=== PATIENT | male | born 1950 | race Caucasian/White ===

== ENCOUNTER 2019-07-06 07:35 | Outpatient (CLI) | payer MEDICARE, SELFPAY ==
--- NOTE | 2019-07-06 07:54 | CT_ITS ---
WS: [id number] CT ABDOMEN PELVIS TECHNIQUE: Contrast-enhanced CT of the abdomen and pelvis with coronal and sagittal reformatted image s. CLINICAL INFORMATION: ABDOMINAL PAIN, RLQ COMPARISON: None. DLP: 1650.[address] scans at [facility] use at least one of these dose optimization techniques: automat ed exposure control; mA and/or kV adjustment per patient size (includes targeted exams where dose is matched to clinical indication); or iterative reconstruction. FINDINGS: Liver is normal in appearance. Normal spleen. Hepatic cyst in the dome of the liver measuring 2.4 x 1 .5 CM. Normal portal vein and splenic vein. Lung bases are well aerated. Subsegmental atelectasis lef t lower lobe. Normal pancreas. Normal GE junction. Slightly enlarged heterogeneous nodular prostate. Prostate measures 4.2 x 3.4 x 3.4 CCM. Recommend co rrelation PSA. Mild diffuse thickening involving the sigmoid colon with slight induration and inflammatory stranding consistent with uncomplicated acute diverticulitis. No evidence of drainable abscess or fluid collec tion. Fatty attenuation lesion involving the cecum measuring 2.1 x 1.5 cm suspicious for cecal lipoma. This could be further evaluated with colonoscopy. No free fluid in the pelvis. Normal bilateral renal parenchymal enhancement. No hydronephrosis. Small bilateral renal cysts. Some of these are too small to characterize. Complex left cortical cyst left upper pole anteriorly. Measuring 1.4 cm with some peripheral enhancement. This can be further evaluat ed with ultrasound. No periaortic or pelvic lymphadenopathy. CT/CT abdomen pelvis w con* [id number] IMPRESSION: 1. Mild diffuse thickening with slight induration involving the sigmoid colon consistent with acute diverticulitis. No drainable fluid collections. 2. Fatty attenuation lesion involving the cecum measuring 2.0 x 1.5 cm suspici ous for cecal lipoma. This can be further evaluated with colonoscopy. 3. Heterogeneous nodular enhancing prostate. Recommend correlation PSA. 4. Multiple small bilateral renal cysts. Slightly complex cyst peripheral enha ncement upper pole left kidney anteriorly measuring 1.4 CM. This can be followe d up with ultrasound. 5. Hepatic cyst dome of the liver measuring 1.5 x 2.4 cm.
[2019-07-06 08:32] LABS: Blood Urea Nitrogen 14 mg/dL (8-23); Glomerular Filtration Rate 112.1 mL/min (90-130)
[2019-07-06] MEDS: iohexol 300 mg/mL 100 mL Btl IV (09:19)
== END 2019-07-06 07:36 | disposition home or self-care (01) ==
LOC: RAD 07:46
PROVIDERS: Family Provider Family Medicine; PCP Family Medicine; Visit Provider Nurse Practitioner Family
DX: R10.31 Right lower quadrant pain (principal); K76.89 Other specified diseases of liver; Q61.02 Congenital multiple renal cysts; N40.2 Nodular prostate without lower urinary tract symptoms
CPT/HCPCS: 36415; 74177; 82565; 84520

== ENCOUNTER 2019-10-22 07:33 | Outpatient (CLI) | payer MEDICARE, SELFPAY ==
--- NOTE | 2019-10-22 07:41 | US_ITS ---
WS: [id number] Complete ABDOMINAL ULTRASOUND HISTORY: LIVER CYST/RENAL CYST/RLQ ABD PAIN/DIVERTICULOSIS COMPARISON: 07/06/2019 CT. Liver: 20.0 cm in length. Moderately enlarged liver. Cyst at the hepatic dome measures 1.6 x 1.6 x 1. 6 cm. No increased vascularity. No additional lesions in the liver. Surface of the liver is slightly undulating. No bile duct dilatation. Gallbladder: Normally distended with no gallstones, wall thickening or pericholecystic fluid. Gallbladder wall thickness: 0.2 cm. Pancreas: Normal size and echogenicity. CBD: 0.6 cm. Right kidney: 11.4 cm x 6.5 cm x 7.0 cm. No mass, cortical thickening or hydronephrosis. Left kidney: 10.8 cm x 6.0 cm x 6.8 cm. Normal size kidney. Exophytic cyst from the mid kidney measu res 1.4 x 1.9 x 1.9 cm. There are smaller cysts. No solid mass. Spleen: Moderately enlarged spleen measures 18 cm in length. No lesions within the spleen. Abdominal aorta and IVC are within normal limits. No ascites. US/US abdomen complete* [id number] IMPRESSION: 1. Normal gallbladder. 2. LEFT renal and hepatic cysts. 3. Moderate hepatomegaly and hepatic steatosis. Early changes of cirrhosis mady uld be considered. 4. Splenomegaly.
--- NOTE | 2019-10-22 07:41 | US_ITS ---
WS: [id number] Pelvic ultrasound. HISTORY: Pelvic pain. Evaluate for solid or fluid collections. Urinary bladder is moderately distended. No free fluid. No pelvic masses. US/US pelvic complete* [id number] IMPRESSION: Moderate distention of the urinary bladder. Otherwise negative.
== END 2019-10-22 07:34 | disposition home or self-care (01) ==
LOC: RAD 07:34
PROVIDERS: PCP Family Medicine; Visit Provider Family Medicine
DX: K76.89 Other specified diseases of liver (principal); N28.1 Cyst of kidney, acquired; K57.30 Diverticulosis of large intestine without perforation or abscess without bleeding; R10.31 Right lower quadrant pain; R16.2 Hepatomegaly with splenomegaly, not elsewhere classified; K76.0 Fatty (change of) liver, not elsewhere classified; R10.2 Pelvic and perineal pain
CPT/HCPCS: 76700; 76856

== ENCOUNTER → 2020-01-31 10:03 | Outpatient (BNVA) | payer MEDICARE, SELFPAY | PROVIDERS: PCP Family Medicine; Visit Provider Internal Medicine Rheumatology | DX: M25.50 Pain in unspecified joint (principal); Z79.899 Other long term (current) drug therapy; Z11.59 Encounter for screening for other viral diseases; Z11.1 Encounter for screening for respiratory tuberculosis; R16.1 Splenomegaly, not elsewhere classified; R16.0 Hepatomegaly, not elsewhere classified | CPT/HCPCS: 36415; 99204 ==

== ENCOUNTER 2020-01-31 10:56 | Outpatient (CLI) | payer MEDICARE, SELFPAY ==
--- NOTE | 2020-01-31 11:04 | XR_ITS ---
WS: [id number] LEFT FOOT: 3 VIEW(S) TECHNIQUE: AP, oblique and lateral. HISTORY: inflammatory arthritis COMPARISON: None available. No acute fracture or dislocation. Mild hallux valgus. No erosions. No subluxation. Small calcaneal spur. XR/XR foot LT min 3V* [id number] IMPRESSION: No erosions. Mild hallux valgus deformity.
--- NOTE | 2020-01-31 11:04 | XR_ITS ---
WS: [id number] CERVICAL SPINE 3 VIEWS HISTORY: inflammatory arthritis COMPARISON: None available. C3 anterolisthesis by 2.7 mm. Moderate disc space narrowing at C4-5, C5-6 and C6-7. Facet joint arthr itis is mild throughout the cervical spine. Mild LEFT convex curvature. No fractures. The odontoid pr ocess is normal. Soft tissues are normal. XR/XR cervical spine 3V* [id number] IMPRESSION: Mild to moderate spondylitic changes. Mild LEFT convex scoliosis.
--- NOTE | 2020-01-31 11:04 | XR_ITS ---
WS: [id number] RIGHT HAND: 3 VIEW(S) TECHNIQUE: PA, oblique and lateral. HISTORY: inflammatory arthritis COMPARISON: None available. No acute fracture or dislocation. Mild interphalangeal joint space narrowing. No erosions. No osteopenia or soft tissue edema. XR/XR hand RT min 3V* [id number] IMPRESSION: Mild osteoarthritis. No erosions.
--- NOTE | 2020-01-31 11:04 | XR_ITS ---
WS: [id number] RIGHT FOOT: 3 VIEW(S) TECHNIQUE: AP, oblique and lateral. HISTORY: inflammatory arthritis COMPARISON: None available. No acute fracture or dislocation. Normal tarsal/metatarsal alignment. Mild hallux valgus deformity. No erosions. Joint spaces are preserved. Very small calcaneal spur. There is diffuse soft tissue edema around the foot. XR/XR foot RT min 3V* [id number] IMPRESSION: Diffuse soft tissue edema around the foot. No erosions. Mild hallux valgus.
--- NOTE | 2020-01-31 11:04 | XR_ITS ---
WS: [id number] LEFT HAND: 3 VIEW(S) TECHNIQUE: PA, oblique and lateral. HISTORY: inflammatory arthritis COMPARISON: None available. No acute fracture or dislocation. Mild interphalangeal joint space. No erosions or periostitis. No subluxation. Mild degenerative mazariegos es at the first metatarsophalangeal joint. No definite erosions. XR/XR hand LT min 3V* [id number] IMPRESSION: Mild changes of osteoarthritis.
--- NOTE | 2020-01-31 11:04 | XR_ITS ---
WS: [id number] CHEST 2 VIEWS HISTORY: inflammatory arthritis COMPARISON: 03/31/2008 Lungs: Slight elevation of the LEFT hemidiaphragm. Minimal pleural thickening at the LEFT lung base. No pneumonia. No nodules. Cardiac size: Normal. Mediastinum/Aorta: Normal mediastinum. Bones: Prior plate and screw fixation LEFT clavicle. XR/XR chest 2V* [id number] IMPRESSION: No acute cardiopulmonary disease. No pulmonary nodules.
== END 2020-01-31 10:57 | disposition home or self-care (01) ==
PROVIDERS: PCP Family Medicine; Visit Provider Internal Medicine Rheumatology
DX: Z79.899 Other long term (current) drug therapy; M20.12 Hallux valgus (acquired), left foot; R60.0 Localized edema; M20.11 Hallux valgus (acquired), right foot; M19.042 Primary osteoarthritis, left hand; M19.041 Primary osteoarthritis, right hand; Z11.59 Encounter for screening for other viral diseases
CPT/HCPCS: 71046; 72040; 73130; 73630; 80076; 82306; 82565; 85025; 85651; 86140; 86431; 86480; 86704; 86803; 87340

== ENCOUNTER → 2020-03-15 08:23 | Outpatient (BNVA) | payer MEDICARE, SELFPAY | PROVIDERS: PCP Family Medicine; Visit Provider Internal Medicine Rheumatology | DX: M19.90 Unspecified osteoarthritis, unspecified site (principal); Z79.899 Other long term (current) drug therapy; M77.9 Enthesopathy, unspecified; Z22.7 Latent tuberculosis; Z87.891 Personal history of nicotine dependence | CPT/HCPCS: 99214 ==

== ENCOUNTER → 2021-12-04 07:43 | Outpatient (BNVA) | payer MEDICARE, SELFPAY | PROVIDERS: PCP Family Medicine; Visit Provider Family Medicine | DX: I10 Essential (primary) hypertension (principal); R60.9 Edema, unspecified; R06.00 Dyspnea, unspecified; Z22.7 Latent tuberculosis; R16.0 Hepatomegaly, not elsewhere classified; R16.1 Splenomegaly, not elsewhere classified | CPT/HCPCS: 80053; 83880; 85025 ==

== ENCOUNTER 2022-02-08 06:37 | Outpatient (CLI) | payer MEDICARE, SELFPAY ==
--- NOTE | 2022-02-08 08:00 | USCV_ITS ---
Néstor Denton Age: 71 Gender: M : 1950 Exam Date: 02/08/2022 08:13 Ordering Phys: Beka Parks DO Technologist: Annabelle Ford [place]am Location[place] [facility] [place]: sob, edema BP: 133 / 80 HR: 72 Rhythm: Sinus Technical Quality: Fair MEASUREMENTS (Male / Female) Normal Values 2D ECHO LV Diastolic Diameter PLAX 5.9 cm 4.2 - 5.9 / 3.9 - 5.3 cm LV Systolic Diameter PLAX 2.6 cm IVS Diastolic Thickness 1.2 cm 0.6 - 1.0 / 0.6 - 0.9 cm IVS Systolic Thickness 1.7 cm LVPW Diastolic Thickness 1.4 cm 0.6 - 1.0 / 0.6 - 0.9 cm LVPW Systolic Thickness 3.2 cm LV Ejection Fraction 2D Teich 85.0 % LV Ejection Fraction MOD 2C 57.0 % LV Ejection Fraction 2C AL 57.5 % LA Diameter 2.4 cm LA Width 3.8 cm LA Height 0.0 cm RA Width 3.9 cm RA Height 4.4 cm Aorta at Sinotubular Diameter 3.0 cm IVC Diameter 2.3 cm DOPPLER AV Peak Velocity 146.0 cm/s LVOT Peak Velocity 84.0 cm/s MV Peak Velocity 133.0 cm/s MV Area PHT 2.9 cm squared Mitral E to A Ratio 0.7 MV E' Velocity 38.0 cm/s Mitral E to MV E' Ratio 9.5 Mitral E to LV E' Lateral Ratio 12.0 Mitral E to LV E' Septal Ratio 7.9 TR Peak Velocity 160.3 cm/s TR Peak Gradient 10.3 mmHg Right Atrial Pressure 3.0 mmHg Pulmonary Artery Systolic Pressu 13.3 mmHg PV Peak Velocity 98.0 cm/s RV Acceleration Time 0.1 s RV Ejection Time 0.2 s RV AcT/ET 0.4 FINDINGS Left Ventricle Normal left ventricular size and systolic function, EF 66 %. No regional wall motion abnormalities. Mild left ventricular hypertrophy. Grade I/IV diastolic dysfunction (abnormal relaxation filling pattern), normal to mildly elevated filling pressures. Right Ventricle The right ventricle is normal in size and function. Right Atrium The right atrium is normal in size. Left Atrium The left atrium is normal in size. Mitral Valve Mild mitral valve regurgitation. Aortic Valve No gross abnormalities noted Tricuspid Valve Trace tricuspid valve regurgitation. Pulmonic Valve Pulmonic valve not well visualized. Pericardium Normal pericardium without effusion. Aorta Normal aortic annulus size. IVC Normal inferior vena cava. CONCLUSIONS Normal left ventricular size and systolic function, EF 66 %. No regional wall motion abnormalities. Mild left ventricular hypertrophy. Grade I/IV diastolic dysfunction (abnormal relaxation filling pattern), normal to mildly elevated filling pressures. Mild mitral valve regurgitation. Trace tricuspid valve regurgitation. Estimated pulmonary artery peak systolic pressure within normal limits There is no pericardial effusion. No similar previous studies are available for comparison Dr Lissette Nunez MD FAC (Electronically Signed) Final Date: 08 February 2022 20:44 S
== END 2022-02-08 06:38 | disposition home or self-care (01) ==
PROVIDERS: PCP Family Medicine; Visit Provider Family Medicine
DX: R06.00 Dyspnea, unspecified (principal); R60.9 Edema, unspecified; I10 Essential (primary) hypertension; I08.1 Rheumatic disorders of both mitral and tricuspid valves
CPT/HCPCS: 93306

== ENCOUNTER → 2022-11-15 09:08 | Outpatient (BNVA) | payer MEDICARE, SELFPAY | PROVIDERS: PCP Family Medicine; Visit Provider Family Medicine | DX: I10 Essential (primary) hypertension (principal); R16.0 Hepatomegaly, not elsewhere classified; R16.1 Splenomegaly, not elsewhere classified; R60.9 Edema, unspecified; Z13.6 Encounter for screening for cardiovascular disorders; Z79.899 Other long term (current) drug therapy | CPT/HCPCS: 80053; 80061; 83036; 85025 ==

== ENCOUNTER → 2023-05-05 10:58 | Outpatient (BNVA) | payer MEDICARE, SELFPAY | PROVIDERS: PCP Family Medicine; Visit Provider Family Medicine | DX: E11.9 Type 2 diabetes mellitus without complications (principal); I10 Essential (primary) hypertension; R16.0 Hepatomegaly, not elsewhere classified; R16.1 Splenomegaly, not elsewhere classified; M19.90 Unspecified osteoarthritis, unspecified site; R73.03 Prediabetes; Z13.6 Encounter for screening for cardiovascular disorders | CPT/HCPCS: 80053; 80061; 83036; 85025 ==

== ENCOUNTER → 2023-05-26 12:21 | Outpatient (BNVA) | payer MEDICARE, SELFPAY | PROVIDERS: PCP Family Medicine; Visit Provider Family Medicine | DX: R16.1 Splenomegaly, not elsewhere classified (principal); D75.1 Secondary polycythemia | CPT/HCPCS: 82668; 82728; 83540 ==

== ENCOUNTER → 2023-10-24 10:25 | Outpatient (BNVA) | payer MEDICARE, SELFPAY | PROVIDERS: PCP Family Medicine; Visit Provider Family Medicine | DX: I10 Essential (primary) hypertension (principal); R73.03 Prediabetes; D75.1 Secondary polycythemia; Z13.6 Encounter for screening for cardiovascular disorders | CPT/HCPCS: 80053; 80061; 83036; 85025 ==

== ENCOUNTER → 2024-04-23 11:12 | Outpatient (BNVA) | payer MEDICARE, SELFPAY | PROVIDERS: PCP Family Medicine; Visit Provider Family Medicine | DX: I10 Essential (primary) hypertension (principal); R73.03 Prediabetes; D75.1 Secondary polycythemia; Z00.00 Encounter for general adult medical examination without abnormal findings | CPT/HCPCS: 80053; 80061; 83036; 85025 ==

== ENCOUNTER → 2024-05-04 14:29 | Outpatient (BNVA) | payer MEDICARE, SELFPAY | PROVIDERS: PCP Family Medicine; Visit Provider Family Medicine | DX: E61.1 Iron deficiency (principal); D75.1 Secondary polycythemia; Z22.7 Latent tuberculosis; R60.9 Edema, unspecified | CPT/HCPCS: 81270; 82728; 83540 ==

== ENCOUNTER 2024-07-20 13:00 | Oncology outpatient (recurring) (ONCR) | payer MEDICARE, SELFPAY ==
[2024-06-29 08:58] LABS: Basophils # 0.1 10^3/uL (0.0-0.1); Eosinophils # 0.3 10^3/uL (0.0-0.8); Eosinophils % 3.3 %; Hematocrit 55.8 % (37-53); Lymphocytes # 1.9 10^3/uL (0.8-4.8); Lymphocytes % 19.5 %; Mean Corpuscular HGB Conc 34.1 g/dL (30-55); Mean Corpuscular Hemoglobin 29.9 pg (27-33); Mean Corpuscular Volume 87.9 fl (82-101); Mean Platelet Volume 9.8 fL (7.4-10.4); Monocytes # 0.5 10^3/uL (0.2-0.9); Monocytes % 5.4 %; Neutrophils # 6.73 10^3/uL (1.8-7.7); Neutrophils % 70.1 %; Nucleated Red Blood Cells % 0 %; Platelet Count 342 10^3/cmm (157-399); Red Blood Count 6.35 10^6/uL (3.85-5.65); Red Cell Distribution Width 14.6 % (12.1-15.1); White Blood Count 9.62 10^3/uL (3.29-11.43)
[2024-06-29 09:13] LABS: Alanine Aminotransferase 20 U/L (0-41); Albumin Level 4.4 g/dL (3.5-5.2); Alkaline Phosphatase 72 U/L (40-130); Aspartate Amino Transferase 22 U/L (0-40); Blood Urea Nitrogen 10 mg/dL (8-23); Calcium 8.9 mg/dL (8.5-10.5); Carbon Dioxide 26 mmol/L (22-29); Chloride 105 mmol/L (98-107); Creatinine Clr Calc Pharmacy 86.3141; Globulin 2.4 g/dL (1.3-4.6); Glucose 108 mg/dL (65-115); Osmolality Calculated 292 mOsm/kg (285-295); Sodium 141 mmol/L (136-145); Total Bilirubin 0.7 mg/dL (0.15-1.2); Total Protein 6.8 g/dL (6.6-8.7)
[2024-06-29 09:18] LABS: Anion Gap 13.8 (5-19); Potassium 3.8 mmol/L (3.5-5.1)
[2024-06-29 15:57] VITALS: BP 148/92; PULSE 68; RESP 16; O2SAT 94
[2024-07-20 13:16] LABS: Basophils # 0.1 10^3/uL (0.0-0.1); Basophils % 0.6 %; Eosinophils # 0.3 10^3/uL (0.0-0.8); Eosinophils % 2.4 %; Hematocrit 49.3 % (37-53); Lymphocytes # 2.1 10^3/uL (0.8-4.8); Lymphocytes % 18.5 %; Mean Corpuscular HGB Conc 34.7 g/dL (30-55); Mean Corpuscular Hemoglobin 30.1 pg (27-33); Mean Corpuscular Volume 86.8 fl (82-101); Mean Platelet Volume 9.5 fL (7.4-10.4); Monocytes # 0.5 10^3/uL (0.2-0.9); Monocytes % 4.7 %; Neutrophils # 8.38 10^3/uL (1.8-7.7); Neutrophils % 73.3 %; Nucleated Red Blood Cells % 0 %; Platelet Count 324 10^3/cmm (157-399); Red Blood Count 5.68 10^6/uL (3.85-5.65); Red Cell Distribution Width 15.2 % (12.1-15.1); White Blood Count 11.44 10^3/uL (3.29-11.43)
[2024-07-20 13:38] LABS: Alanine Aminotransferase 23 U/L (0-41); Albumin Level 4.3 g/dL (3.5-5.2); Alkaline Phosphatase 75 U/L (40-130); Anion Gap 15.3 (5-19); Aspartate Amino Transferase 24 U/L (0-40); Blood Urea Nitrogen 9 mg/dL (8-23); Calcium 8.7 mg/dL (8.5-10.5); Carbon Dioxide 28 mmol/L (22-29); Chloride 105 mmol/L (98-107); Creatinine Clr Calc Pharmacy 85.8921; Globulin 2.4 g/dL (1.3-4.6); Glucose 105 mg/dL (65-115); Osmolality Calculated 297 mOsm/kg (285-295); Potassium 4.3 mmol/L (3.5-5.1); Sodium 144 mmol/L (136-145); Total Bilirubin 0.6 mg/dL (0.15-1.2); Total Protein 6.7 g/dL (6.6-8.7)
== END 2024-07-28 23:59 | disposition home or self-care (01) ==
PROVIDERS: PCP Family Medicine; Visit Provider Internal Medicine Medical Oncology
DX: Z53.9 Procedure and treatment not carried out, unspecified reason; D45 Polycythemia vera; Z15.89 Genetic susceptibility to other disease; Z87.891 Personal history of nicotine dependence; Z79.899 Other long term (current) drug therapy
CPT/HCPCS: 36415; 80053; 85025; 99195; 99205; 99214

== ENCOUNTER 2024-08-17 15:11 | Oncology outpatient (recurring) (ONCR) | payer MEDICARE, SELFPAY ==
[2024-08-17 14:01] LABS: Basophils # 0.1 10^3/uL (0.0-0.1); Basophils % 1.1 %; Eosinophils # 0.3 10^3/uL (0.0-0.8); Eosinophils % 3.1 %; Hematocrit 50.1 % (37-53); Lymphocytes # 2.1 10^3/uL (0.8-4.8); Lymphocytes % 25.5 %; Mean Corpuscular HGB Conc 34.3 g/dL (30-55); Mean Corpuscular Hemoglobin 31.4 pg (27-33); Mean Corpuscular Volume 91.4 fl (82-101); Mean Platelet Volume 9.5 fL (7.4-10.4); Monocytes # 0.5 10^3/uL (0.2-0.9); Monocytes % 5.5 %; Neutrophils # 5.34 10^3/uL (1.8-7.7); Neutrophils % 64.4 %; Nucleated Red Blood Cells % 0 %; Platelet Count 201 10^3/cmm (157-399); Red Blood Count 5.48 10^6/uL (3.85-5.65)
[2024-08-17 14:20] LABS: Alanine Aminotransferase 22 U/L (0-41); Albumin Level 4.1 g/dL (3.5-5.2); Alkaline Phosphatase 70 U/L (40-130); Anion Gap 11.7 (5-19); Aspartate Amino Transferase 22 U/L (0-40); Blood Urea Nitrogen 12 mg/dL (8-23); Calcium 8.7 mg/dL (8.5-10.5); Carbon Dioxide 27 mmol/L (22-29); Chloride 104 mmol/L (98-107); Creatinine Clr Calc Pharmacy 86.7362; Globulin 2.8 g/dL (1.3-4.6); Glucose 100 mg/dL (65-115); Osmolality Calculated 288 mOsm/kg (285-295); Potassium 3.7 mmol/L (3.5-5.1); Sodium 139 mmol/L (136-145); Total Bilirubin 0.6 mg/dL (0.15-1.2); Total Protein 6.9 g/dL (6.6-8.7)
== END 2024-08-28 23:59 | disposition home or self-care (01) ==
PROVIDERS: PCP Family Medicine; Visit Provider Internal Medicine Medical Oncology
DX: Z53.9 Procedure and treatment not carried out, unspecified reason; D45 Polycythemia vera; Z15.89 Genetic susceptibility to other disease; Z87.891 Personal history of nicotine dependence; Z79.899 Other long term (current) drug therapy; R03.0 Elevated blood-pressure reading, without diagnosis of hypertension; Z79.64 Long term (current) use of myelosuppressive agent
CPT/HCPCS: 36415; 80053; 85025; 99195; 99214

== ENCOUNTER 2024-09-14 12:10 | Oncology outpatient (recurring) (ONCR) | payer MEDICARE, SELFPAY ==
[2024-09-14 12:55] LABS: Red Blood Count 4.87 10^6/uL (3.85-5.65); White Blood Count 5.86 10^3/uL (3.29-11.43)
[2024-09-14 12:56] LABS: Basophils # 0.1 10^3/uL (0.0-0.1); Basophils % 0.9 %; Eosinophils # 0.2 10^3/uL (0.0-0.8); Eosinophils % 2.7 %; Lymphocytes # 1.8 10^3/uL (0.8-4.8); Lymphocytes % 29.9 %; Mean Corpuscular HGB Conc 35.7 g/dL (30-55); Mean Corpuscular Hemoglobin 34.5 pg (27-33); Mean Corpuscular Volume 96.5 fl (82-101); Mean Platelet Volume 9.3 fL (7.4-10.4); Monocytes # 0.3 10^3/uL (0.2-0.9); Monocytes % 5.1 %; Neutrophils # 3.58 10^3/uL (1.8-7.7); Neutrophils % 61.1 %; Nucleated Red Blood Cells % 0 %; Platelet Count 138 10^3/cmm (157-399); Red Cell Distribution Width 19.2 % (12.1-15.1)
[2024-09-14 13:14] LABS: Alanine Aminotransferase 20 U/L (0-41); Albumin Level 4.2 g/dL (3.5-5.2); Alkaline Phosphatase 64 U/L (40-130); Aspartate Amino Transferase 20 U/L (0-40); Blood Urea Nitrogen 12 mg/dL (8-23); Calcium 8.7 mg/dL (8.5-10.5); Carbon Dioxide 26 mmol/L (22-29); Chloride 105 mmol/L (98-107); Globulin 2.3 g/dL (1.3-4.6); Glucose 112 mg/dL (65-115); Osmolality Calculated 289 mOsm/kg (285-295); Sodium 139 mmol/L (136-145); Total Bilirubin 0.6 mg/dL (0.15-1.2); Total Protein 6.5 g/dL (6.6-8.7)
== END 2024-09-27 23:59 | disposition home or self-care (01) ==
PROVIDERS: Nurse Practitioner Family; PCP Family Medicine; Visit Provider Internal Medicine Medical Oncology
DX: Z53.9 Procedure and treatment not carried out, unspecified reason; D45 Polycythemia vera; Z87.891 Personal history of nicotine dependence; Z79.899 Other long term (current) drug therapy; R03.0 Elevated blood-pressure reading, without diagnosis of hypertension
CPT/HCPCS: 36415; 80053; 85025; 99213

== ENCOUNTER 2024-10-12 10:14 | Oncology outpatient (recurring) (ONCR) | payer MEDICARE, SELFPAY ==
[2024-10-12 10:44] LABS: Hematocrit 44.6 % (37-53); Hemoglobin 15.90 g/dL (11.27-16.99); Mean Corpuscular HGB Conc 35.7 g/dL (30-55); Mean Corpuscular Hemoglobin 35.3 pg (27-33); Mean Corpuscular Volume 98.9 fl (82-101); Nucleated Red Blood Cells % 0 %; Platelet Count 113 10^3/cmm (157-399); Red Blood Count 4.51 10^6/uL (3.85-5.65); White Blood Count 5.70 10^3/uL (3.29-11.43)
[2024-10-12 10:59] LABS: Alanine Aminotransferase 23 U/L (0-41); Albumin Level 3.9 g/dL (3.5-5.2); Alkaline Phosphatase 69 U/L (40-130); Anion Gap 13.0 (5-19); Aspartate Amino Transferase 21 U/L (0-40); Blood Urea Nitrogen 10 mg/dL (8-23); Calcium 8.5 mg/dL (8.5-10.5); Carbon Dioxide 28 mmol/L (22-29); Chloride 104 mmol/L (98-107); Globulin 2.5 g/dL (1.3-4.6); Glucose 122 mg/dL (65-115); Osmolality Calculated 292 mOsm/kg (285-295); Potassium 4.0 mmol/L (3.5-5.1); Sodium 141 mmol/L (136-145); Total Protein 6.4 g/dL (6.6-8.7)
== END 2024-10-28 23:59 | disposition home or self-care (01) ==
PROVIDERS: Nurse Practitioner Family; PCP Family Medicine; Visit Provider Internal Medicine Medical Oncology
DX: D45 Polycythemia vera (principal); R03.0 Elevated blood-pressure reading, without diagnosis of hypertension; D69.6 Thrombocytopenia, unspecified; Z87.891 Personal history of nicotine dependence; Z79.899 Other long term (current) drug therapy
CPT/HCPCS: 36415; 80053; 85025; 99213

== ENCOUNTER 2024-11-23 10:59 | Oncology outpatient (recurring) (ONCR) | payer MEDICARE, SELFPAY ==
[2024-11-23 11:27] LABS: Hematocrit 40.4 % (37-53); Hemoglobin 14.80 g/dL (11.27-16.99); Mean Corpuscular HGB Conc 36.6 g/dL (30-55); Mean Corpuscular Hemoglobin 38.0 pg (27-33); Mean Corpuscular Volume 103.9 fl (82-101); Nucleated Red Blood Cells % 0 %; Platelet Count 104 10^3/cmm (157-399); Red Blood Count 3.89 10^6/uL (3.85-5.65); White Blood Count 5.38 10^3/uL (3.29-11.43)
[2024-11-23 11:54] LABS: Alanine Aminotransferase 23 U/L (0-41); Albumin Level 4.0 g/dL (3.5-5.2); Alkaline Phosphatase 67 U/L (40-130); Anion Gap 10.8 (5-19); Aspartate Amino Transferase 25 U/L (0-40); Blood Urea Nitrogen 11 mg/dL (8-23); Calcium 8.5 mg/dL (8.5-10.5); Carbon Dioxide 27 mmol/L (22-29); Chloride 104 mmol/L (98-107); Globulin 2.5 g/dL (1.3-4.6); Glucose 120 mg/dL (65-115); Osmolality Calculated 287 mOsm/kg (285-295); Potassium 3.8 mmol/L (3.5-5.1); Sodium 138 mmol/L (136-145); Total Protein 6.5 g/dL (6.6-8.7)
== END 2024-11-28 23:59 | disposition home or self-care (01) ==
PROVIDERS: PCP Family Medicine; Visit Provider Internal Medicine Medical Oncology
DX: D45 Polycythemia vera (principal); R03.0 Elevated blood-pressure reading, without diagnosis of hypertension; D69.6 Thrombocytopenia, unspecified; Z87.891 Personal history of nicotine dependence; Z79.899 Other long term (current) drug therapy
CPT/HCPCS: 36415; 80053; 85025; 99213

== ENCOUNTER 2025-01-25 11:49 | Oncology outpatient (recurring) (ONCR) | payer MEDICARE, SELFPAY ==
[2025-01-25 12:18] LABS: Hematocrit 39.2 % (37-53); Hemoglobin 14.50 g/dL (11.27-16.99); Mean Corpuscular HGB Conc 37.0 g/dL (30-55); Mean Corpuscular Hemoglobin 41.9 pg (27-33); Mean Corpuscular Volume 113.3 fl (82-101); Nucleated Red Blood Cells % 0 %; Platelet Count 86 10^3/cmm (157-399); Red Blood Count 3.46 10^6/uL (3.85-5.65); White Blood Count 4.83 10^3/uL (3.29-11.43)
[2025-01-25 12:38] LABS: Alanine Aminotransferase 17 U/L (0-41); Albumin Level 4.0 g/dL (3.5-5.2); Alkaline Phosphatase 71 U/L (40-130); Anion Gap 13.0 (5-19); Aspartate Amino Transferase 18 U/L (0-40); Blood Urea Nitrogen 10 mg/dL (8-23); Calcium 8.3 mg/dL (8.5-10.5); Carbon Dioxide 27 mmol/L (22-29); Chloride 105 mmol/L (98-107); Creatinine Clr Calc Pharmacy 88.0014; Globulin 2.1 g/dL (1.3-4.6); Glucose 110 mg/dL (65-115); Osmolality Calculated 292 mOsm/kg (285-295); Potassium 4.0 mmol/L (3.5-5.1); Sodium 141 mmol/L (136-145); Total Protein 6.1 g/dL (6.6-8.7)
== END 2025-01-28 23:59 | disposition home or self-care (01) ==
PROVIDERS: Nurse Practitioner Family; PCP Family Medicine; Visit Provider Internal Medicine Medical Oncology
DX: D45 Polycythemia vera (principal); R03.0 Elevated blood-pressure reading, without diagnosis of hypertension; D69.6 Thrombocytopenia, unspecified; Z87.891 Personal history of nicotine dependence; Z79.899 Other long term (current) drug therapy
CPT/HCPCS: 36415; 80053; 85025; 99214

== ENCOUNTER 2025-02-22 12:49 | Oncology outpatient (recurring) (ONCR) | payer MEDICARE, SELFPAY ==
[2025-02-22 13:35] LABS: Hematocrit 39.6 % (37-53); Hemoglobin 14.30 g/dL (11.27-16.99); Mean Corpuscular HGB Conc 36.1 g/dL (30-55); Mean Corpuscular Hemoglobin 41.0 pg (27-33); Mean Corpuscular Volume 113.5 fl (82-101); Nucleated Red Blood Cells % 0 %; Platelet Count 109 10^3/cmm (157-399); Red Blood Count 3.49 10^6/uL (3.85-5.65); White Blood Count 4.92 10^3/uL (3.29-11.43)
[2025-02-22 13:50] LABS: Alanine Aminotransferase 16 U/L (0-41); Albumin Level 3.9 g/dL (3.5-5.2); Alkaline Phosphatase 63 U/L (40-130); Anion Gap 11.4 (5-19); Aspartate Amino Transferase 17 U/L (0-40); Blood Urea Nitrogen 12 mg/dL (8-23); Calcium 8.5 mg/dL (8.5-10.5); Carbon Dioxide 28 mmol/L (22-29); Chloride 106 mmol/L (98-107); Globulin 2.4 g/dL (1.3-4.6); Glucose 111 mg/dL (65-115); Osmolality Calculated 292 mOsm/kg (285-295); Potassium 4.4 mmol/L (3.5-5.1); Sodium 141 mmol/L (136-145); Total Protein 6.3 g/dL (6.6-8.7)
== END 2025-02-27 23:59 | disposition home or self-care (01) ==
PROVIDERS: Nurse Practitioner Family; PCP Family Medicine; Visit Provider Internal Medicine Medical Oncology
DX: D45 Polycythemia vera (principal); R03.0 Elevated blood-pressure reading, without diagnosis of hypertension; Z87.891 Personal history of nicotine dependence
CPT/HCPCS: 36415; 80053; 85025; 99213

== ENCOUNTER → 2025-03-11 09:32 | Outpatient (BNVA) | payer MEDICARE, SELFPAY | PROVIDERS: PCP Family Medicine; Visit Provider Family Medicine | DX: R73.03 Prediabetes (principal); I10 Essential (primary) hypertension | CPT/HCPCS: 80061; 83036 ==